=== PATIENT | female | born 1960 | race Caucasian/White ===

== ENCOUNTER → 2016-09-04 | Outpatient (CLI) | payer BC ==
[~2016-09-04] MED LIST: ASCAUNK PO; AZLCR30; B-CO1CAP17 PO; CALCTAB5 PO; CHOL100027 PO; CLINDAMYCIN GEL TOP; MULTTAB58 PO; OMEG-112 PO; [UNRECOGNIZED DRUG - REMARK]; excedrin
--- NOTE | 2016-09-05 12:44 | MAMMOGRAPHY REPORT ---
BILATERAL DIGITAL SCREENING MAMMOGRAM TOMOSYNTHESIS WITH CAD: 09/04/2016 CLINICAL HISTORY: Routine screening. Patient has no complaints. TECHNIQUE: Breast tomosynthesis in addition to standard 2D mammography was performed. Current study was also evaluated with a Computer Aided Detection (CAD) system. COMPARISON: Comparison is made to exams dated: 09/04/2015 mammogram, 09/01/2014 mammogram, 08/31/2013 ma mmogram, 08/30/2012 mammogram, 08/28/2011 mammogram, and 08/22/2010 mammogram - [facility]. BREAST COMPOSITION: The tissue of both breasts is extremely dense, which lowers the sensitivity of m ammography. FINDINGS: No suspicious masses, calcifications, or areas of architectural distortion are noted in ei ther breast. There has been no significant interval change compared to prior exams. IMPRESSION: ACR BI-RADS CATEGORY 1: NEGATIVE There is no mammographic evidence of malignancy. A 1 year screening mammogram is recommended. The pa tient will receive written notification of the results. Approximately 10% of breast cancers are not detected with mammography. A negative mammographic report should not delay biopsy if a clinically suggestive mass is present. Suze Russell M.D. /:09/04/2016 15:32:30 Network Strategist: Caron GOMEZ(Joseph)(Marquise)(BAHMAN), [facility] letter sent: Normal 1/2 BI-RADS Code: ACR BI-RADS Category 1: Negative
== END | disposition home or self-care (01) ==
LOC: C.MAMM 09:10
PROVIDERS: ATTEND Obstetrics & Gynecology
DX: Z12.31 Encounter for screening mammogram for malignant neoplasm of breast (principal)

== ENCOUNTER → 2016-11-06 | Outpatient (CLI) | payer BC ==
--- NOTE | 2016-11-06 19:28 | DIAGNOSTIC IMAGING REPORT ---
RIGHT FOREARM 2 VIEWS ROUTINE CLINICAL HISTORY: Right forearm pain status post trauma COMPARISON: None. DISCUSSION: The bones are mildly osteopenic. No acute fractures or dislocations are visualized. IMPRESSION: No fractures identified. Electronically signed by: Vignesh Garcia M.D. 11/06/2016 7:27 PM Dictated Date/Time: 11/06/2016 7:26 PM
--- NOTE | 2016-11-06 19:30 | DIAGNOSTIC IMAGING REPORT ---
RIGHT WRIST MIN 3 VIEWS ROUTINE CLINICAL HISTORY: Right wrist pain status post trauma COMPARISON: None. DISCUSSION: The bones are mildly osteopenic. No acute fractures or dislocations are visualized. IMPRESSION: No fractures or dislocations identified. Electronically signed by: Vignesh Garcia M.D. 11/06/2016 7:28 PM Dictated Date/Time: 11/06/2016 7:27 PM
== END | disposition home or self-care (01) ==
LOC: C.RAD 19:04
PROVIDERS: ATTEND Family Medicine
DX: S59.919A Unspecified injury of unspecified forearm, initial encounter (principal); W19.XXXA Unspecified fall, initial encounter

== ENCOUNTER → 2017-07-08 | Outpatient (CLI) | payer OTHER ==
--- NOTE | 2017-07-08 15:24 | MAMMOGRAPHY REPORT ---
UNILATERAL RIGHT DIGITAL DIAGNOSTIC MAMMOGRAM TOMOSYNTHESIS WITH CAD AND TARGETED RIGHT ULTRASOUND: CLINICAL HISTORY: The patient reports new right nipple inversion since June 22. She also reports it johanna of the right nipple for a few months. She denies any nipple discharge, palpable lumps, or othe r complaints. TECHNIQUE: Breast tomosynthesis in addition to standard 2D mammography was performed. Current study was also evaluated with a Computer Aided Detection (CAD) system. Right CC and MLO 2D and tomosynthes is images were obtained. COMPARISON: Comparison is made to exams dated: 09/04/2016 mammogram, 09/04/2015 mammogram, 09/01/2014 m ammogram, 08/31/2013 mammogram, 08/30/2012 mammogram, and 08/28/2011 mammogram - [facility]. BREAST COMPOSITION: The tissue of the right breast is extremely dense, which lowers the sensitivity of mammography. FINDINGS: There are no suspicious masses, calcifications, or areas of architectural distortion noted in the right breast mammographically. The right nipple is inverted, best seen on the MLO view. Targeted ultrasound was performed of the right subareolar breast to evaluate right nipple inversion a nd itching. Sonographically normal tissue is seen in this region, without evidence of a mass or othe r suspicious sonographic abnormality. IMPRESSION: ACR BI-RADS CATEGORY 2: BENIGN, TARGETED ULTRASOUND ACR BI-RADS CATEGORY 2: BENIGN No suspicious mammographic or sonographic abnormality to explain new right nipple inversion and itchi ng. There is no mammographic or targeted sonographic evidence of malignancy. Recommend clinical fol low-up; given that the nipple inversion is new, consider surgical consultation for further evaluation . Also recommend routine bilateral mammograms which are due August 2017. The patient has been verbally notified of the results. Approximately 10% of breast cancers are not detected with mammography. A negative mammographic report should not delay biopsy if a clinically suggestive mass is present. Suze Russell M.D. ah/:07/08/2017 08:43:01 Boring Machine Operator Horizontal: Eri VALLECILLO)(Marquise), [facility] letter sent: Normal 1/2 BI-RADS Code: ACR BI-RADS Category 2: Benign Ultrasound BI-RADS: ACR BI-RADS Category 2: Benign
== END | disposition home or self-care (01) ==
LOC: C.MAMM 08:10
PROVIDERS: ATTEND Obstetrics & Gynecology
DX: N64.59 Other signs and symptoms in breast (principal)